=== PATIENT | male | born 1940 | race Caucasian/White ===

== ENCOUNTER 2021-10-16 21:12 | Observation (INO) ==
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
[2021-10-16] MEDS ORDERED: OXYMETAZOLINE 1 NASAL SPRAY BOTTLE NAS PRN (22:17)
[2021-10-16] MEDS ORDERED: ACETAMINOPHEN 500 MG TABLET PO ONE (22:17)
[2021-10-16] MEDS ORDERED: ONDANSETRON 4 MG ODT TABLET SL ONE (22:17)
[2021-10-16] MEDS ORDERED: 0.9 % SODIUM CHLORIDE 1,000 ML IV ONE (22:54)
[2021-10-16] MEDS ORDERED: ONDANSETRON 4 MG/2 ML VIAL IV ONE (22:54)
[2021-10-16] MEDS ORDERED: morphine 4 MG/ML VIAL IV PRN (22:54)
[2021-10-16 23:53] LABS: Basophils # (Auto) 0.07 K/mcL (0.00-0.30); Basophils % (Auto) 0.6 % (0.0-2.0); Eosinophils # (Auto) 0.18 K/mcL (0.00-0.70); Eosinophils % (Auto) 1.6 % (0.0-7.0); Hematocrit 36.7 % (40.1-51.0); Hemoglobin 11.6 g/dL (13.7-17.5); Mean Cell Volume 89.3 fL (80.0-100.0); Mean Corpuscular HGB Conc 31.6 g/dL (31.0-36.0); Mean Platelet Volume 10.6 fL (7.4-10.4); Monocytes # (Auto) 0.95 K/mcL (0.10-0.90); Monocytes % (Auto) 8.6 % (1.0-12.0); Neutrophils % (Auto) 80.2 % (38.0-78.0); Platelet Count 205 K/mcL (140-440); RBC 4.11 M/mcL (4.63-6.08); Red Cell Distribution Width 14.4 % (11.5-14.5); WBC 11.1 K/mcL (4.5-11.0)
[2021-10-17 00:11] LABS: INR 1.1 (0.9-1.1); Prothrombin Time 14.4 sec (11.9-14.5)
[2021-10-17 00:11] LABS: Alcohol, Blood < 10.0 mg/dL; Alcohol,Blood < 0.010 gm/dL (<0.010)
[2021-10-17 00:13] LABS: ALT/SGPT 11 U/L (<40); AST/SGOT 17 U/L (<40); Albumin 3.9 gm/dL (3.2-5.2); Albumin/Globulin Ratio 1.2 (1.0-2.3); Alkaline Phosphatase 125 U/L (39-117); Bilirubin,Total 0.3 mg/dL (0.1-1.0); Blood Urea Nitrogen 15 mg/dL (8-23); Calcium 9.3 mg/dL (8.6-10.4); Carbon Dioxide 23 mmol/L (22-30); Chloride 101 mmol/L (96-108); Globulin 3.2 gm/dL (2.2-3.7); Glomerular Filtration Rate 63; Glucose 126 mg/dL (70-105)
[2021-10-17] MEDS ORDERED: morphine 2 MG/ML VIAL IV PRN (00:42)
[2021-10-17] MEDS ORDERED: ONDANSETRON 4 MG/2 ML VIAL IV PRN (00:43)
[2021-10-17] MEDS ORDERED: NITROGLYCERIN 0.4 MG TAB.SUBL SL PRN (08:34)
[2021-10-17] MEDS ORDERED: METHOCARBAMOL 750 MG TABLET PO PRN (08:34)
[2021-10-17] MEDS ORDERED: HYDROcodone/APAP 5/325MG TABLET PO PRN (08:34)
[2021-10-17] MEDS ORDERED: NALOXONE HCL 0.4 MG/ML VIAL IV PRN (08:35)
[2021-10-17] MEDS ORDERED: HYDROmorphone 0.5 MG/0.5 ML SYRINGE IV PRN (08:36)
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
--- NOTE | 2021-10-17 08:49 | Internal Med History&Physical ---
HPI History of Present Illness Patient information: Note initiated : 10/17/21 at 8:36 am Service Date, if different from initiated Date: [] Patient: Angelo Caldwell 81 y/o M admitted on 10/17/21 for Trauma, fall. Chief Complaint: [] History of present illness: Mr. Caldwell is a 81 year male with a history of hypertension, hyperlipidemia, atrial fibrillation not on anticoagulation, prior DVT, history of GI bleed, coronary artery disease, prostate cancer who presented to the emergency department after a mechanical fall resulting in trauma to the left side of his face. Trauma work-up in the ED included cervical spine CT, face and head CT as well as knee x-ray. Radiology reported the results to the ED provider, ED, Dr. Ku, who then consulted with Dr. Almonte who is an viticulturist in [facility] followed by Dr. Van with maxillofacial surgery in [place]. The surgical consultants felt that the patient's trauma would not require urgent surgical intervention. Hospital medicine at [facility] was subsequently consulted for admission due to the patient's pain requiring IV opioids for pain control. Review of systems Constitutional: no fever, fatigue, or weight loss Eyes: no vision changes or pain Cardiovascular: no chest pain, no palpitations Respiratory: no cough or dyspnea Gastrointestinal: no abdominal pain, no nausea, vomiting, or diarrhea Genitourinary: no dysuria or difficulty voiding Musculoskeletal: Left sided facial pain due to trauma. Integumentary: no skin lesion or wound Neurological: no focal weakness or numbness Psychiatric: no anxiety or depression Physical exam Head: Left periorbital and left temporal hematoma, Eyes: PERRLA, left orbit conjunctival hemorrhage. Neck: full ROM Respiratory: no respiratory distress. Cardiovascular: normal rate and rhythm, S1, S2. GI/Abdominal: soft, nontender, no guarding. Extremities: full range of motion, nontender. Neurological: CN II-XII intact, intact motor, intact sensation. Psychiatric: normal mood. Skin: warm, normal color PFSH PFSH All Active Problems (Updated 10/17/21 @ 01:03 by Mark Nelson DO) Closed fracture of left zygomaticomaxillary complex (Acute) Closed head injury (Acute) Strain of left knee (Acute) Retrobulbar hematoma (Acute) Facial laceration (Acute) Concussion syndrome (Acute) New onset atrial fibrillation (Acute) Rising PSA following treatment for malignant neoplasm of prostate (Chronic) Recurrent prostate cancer (Chronic) Urge incontinence (Chronic) Constipation (Chronic) COLTON (stress urinary incontinence), male (Chronic) Erectile dysfunction (Chronic) Prostate cancer (Chronic) Change in vision (Chronic) Concussion without loss of consciousness (Chronic) Acute vestibular neuronitis (Chronic) Frontal headache (Chronic) Dizziness (Chronic) Dental infection (Chronic) External otitis of right ear (Chronic) CAD (coronary artery disease) (Chronic) Gastroduodenal artery bleed (Chronic) Anemia (Chronic) YOSSI (acute kidney injury) (Chronic) Tachycardia (Chronic) DVT, bilateral lower limbs (Chronic) Fracture of ankle, closed (Chronic) Benign localized prostatic hyperplasia without lower urinary tract symptoms (L UTS) (Chronic) Closed cervical spine fracture (Chronic) History of colonic polyps (Chronic) Elevated PSA (Chronic 12/11/13) Erectile dysfunction (Chronic 06/09/14) Fracture of finger, closed (Chronic) Gastric ulcer (Chronic) Gastrointestinal bleeding (Chronic) Hypertension, essential (Chronic) 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) Malignant neoplasm of prostate (Chronic 12/24/13) Closed rib fracture (Chronic) Melanoma of skin (Chronic) Urinary incontinence (Chronic 06/09/14) History of skin cancer (Chronic) Fecal impaction of colon (Chronic) Hip pain, acute (Chronic) Hematoma and contusion (Chronic) Medicare annual wellness visit, initial (Chronic) Hypertension (Chronic) Annual physical exam (Chronic) Right knee pain (Chronic) Dysphagia (Chronic) Medical History (Updated 10/17/21 @ 01:03 by Mark Nelson DO) Acute vestibular neuronitis YOSSI (acute kidney injury) Anemia Annual physical exam Benign localized prostatic hyperplasia without lower urinary tract symptoms (LUTS) CAD (coronary artery disease) Change in vision Closed cervical spine fracture x2 Closed rib fracture Concussion without loss of consciousness Constipation Dental infection Dizziness DVT, bilateral lower limbs Dysphagia Elevated PSA (12/11/13) Rising PSA status post radical prostatectomy with progression Erectile dysfunction (06/09/14) Erectile dysfunction External otitis of right ear Fecal impaction of colon Fracture of ankle, closed R Fracture of finger, closed R thumb Frontal headache Gastric ulcer Gastroduodenal artery bleed Gastrointestinal bleeding Hematoma and contusion hip/buttocks R>L Hip pain, acute History of colonic polyps History of skin cancer melanotic skin lesions Hypertension Hypertension, essential Malignant neoplasm of prostate (12/24/13) Medicare annual wellness visit, initial Melanoma of skin Osteoarthritis of left shoulder region L Postpolio syndrome Prostate cancer Recurrent prostate cancer Right knee pain Rising PSA following treatment for malignant neoplasm of prostate COLTON (stress urinary incontinence), male Tachycardia Urge incontinence Urinary incontinence (06/09/14) Surgical History (Updated 09/15/21 @ 08:25 by Nava Estrada) History of adenoidectomy History of angiography (08/26/21) Aortogram- celiac, gastroduodenal, superior pancreaticoduodenal, superior mesenteric History of hemorrhoidectomy History of hydrocelectomy R repair History of radical prostatectomy History of repair of right rotator cuff History of thumb surgery R History of tonsillectomy History of total knee replacement L Family History Father Congestive heart failure Malignant neoplasm at 83y Unknown Diabetes mellitus Mother Essential hypertension Osteoarthritis Cerebrovascular accident at 87y Social History marital status: education level: college occupational status: employed occupation: [employer] other: 4 Children, 2 grandchildren alcohol intake frequency: holiday/special occasion only substance use type: does not use MEDS/ALLERGIES Home Medications and Allergies Home Medications Medication Instructions Recorded Confirmed Type ipratropium bromide 42 mcg (0.06 2 spray INTRANASAL TID PRN #15 ml 06/10/20 10/06/21 Rx %) nasal spray methocarbamol 750 mg tablet 1 tab PO Q6H PRN 08/26/21 10/06/21 History nitroglycerin 0.4 mg sublingual 0.4 mg SUBLINGUAL Q5-15MIN PRN 0 08/26/21 10/06/21 Rx tablet (Nitrostat) Days #25 tab hydrocodone 10 mg-acetaminophen 1 tab PO Q6H PRN 09/07/21 10/17/21 History 325 mg tablet omeprazole 20 mg capsule,delayed 20 mg PO BID 09/07/21 10/06/21 History release atorvastatin 40 mg tablet (Lipitor) 40 mg PO QHS tab 10/06/21 10/17/21 History metoprolol succinate 50 mg 50 mg PO QDAY #90 tab 10/12/21 10/17/21 Rx tablet,extended release 24 hr olmesartan 40 mg tablet 40 mg PO QDAY 10/17/21 10/17/21 History Allergies Allergy/AdvReac Type Severity Reaction Status Date / Time No Known Drug Allergies Allergy Verified 10/16/21 21:15 EXAM Constitutional Vitals: Temp Pulse Resp BP Pulse Ox 98.8 F 85 20 157/75 96 10/17/21 07:55 10/17/21 07:55 10/17/21 07:55 10/17/21 07:55 10/17/21 07:55 DATA Data Completed and Pending Labs: Labs from last 24 hours 10/16/21 10/16/21 10/16/21 23:18 23:17 23:17 WBC RBC Hgb Hct MCV MCH MCHC RDW Plt Count MPV Neut % (Auto) Lymph % (Auto) [place] % (Auto) Eos % (Auto) Baso % (Auto) Lymph # (Auto) [place] # (Auto) Eos # (Auto) Baso # (Auto) Absolute Neutrophils PT 14.4 INR 1.1 Sodium 133 Potassium 4.1 Chloride 101 Carbon Dioxide 23 Anion Gap 9.0 BUN 15 Creatinine 1.1 GFR Calculation 63 Glucose 126 H Calcium 9.3 Total Bilirubin 0.3 AST 17 ALT 11 Alkaline Phosphatase 125 H Total Protein 7.1 Albumin 3.9 Globulin 3.2 Albumin/Globulin Ratio 1.2 Ethyl Alcohol < 0.010 10/16/21 23:17 WBC 11.1 H RBC 4.11 L Hgb 11.6 L Hct 36.7 L MCV 89.3 MCH 28.2 MCHC 31.6 RDW 14.4 Plt Count 205 MPV 10.6 H Neut % (Auto) 80.2 H Lymph % (Auto) 9.0 L [place] % (Auto) 8.6 Eos % (Auto) 1.6 Baso % (Auto) 0.6 Lymph # (Auto) 1.00 L [place] # (Auto) 0.95 H Eos # (Auto) 0.18 Baso # (Auto) 0.07 Absolute Neutrophils 8.87 H PT INR Sodium Potassium Chloride Carbon Dioxide Anion Gap BUN Creatinine GFR Calculation Glucose Calcium Total Bilirubin AST ALT Alkaline Phosphatase Total Protein Albumin Globulin Albumin/Globulin Ratio Ethyl Alcohol A/P Narrative A/P Narrative: Assessment: 81 year male with a history of hypertension, hyperlipidemia, atrial fibrillation not on anticoagulation, prior DVT, history of GI bleed, coronary artery disease, prostate cancer admitted after a mechanical fall resulting in left facial trauma and left orbital trauma. Ophthalmology and maxillofacial surgery in [facility] were consulted by the ED provider, no surgical intervention required per the consultants recommendation. I discussed the patient with ENT, Dr. Vo who recommended close follow-up with ENT in clinic in approximately 3 to 4 days for further evaluation. #Left orbital trauma #Left facial trauma #Hypertension #Hyperlipidemia #Atrial fibrillation not on anticoagulation #Coronary artery disease #History of DVT #History of GI bleed #History of prostate cancer Plan -Admit to observation status. -Analgesics as needed. -Cephalexin BID per maxillofacial surgery's recommendations.. -Follow-up pending CT scan reports. -Continue home atorvastatin, Toprol, telmisartan, omeprazole, nitro as needed. -Cardiac diet. -PT consult. -CODE STATUS: Full -Disposition: Home when pain adequately controlled on oral medications. Close follow-up with ENT after discharge. Time Spent With Patient Time: Total time spent is greater than 50% in coordination of care (as documented) at patient's floor/unit and/or counseling patient: QUALITY Stroke Symptom Onset Unknown: No VTE Deep Vein Thrombosis/Pulmonary Embolism Present on Admission: No
--- NOTE | 2021-10-17 08:52 | Cat Scan Report ---
History: Trauma with left-sided facial injury TECHNIQUE: The face was imaged without contrast in an axial plane at 1.25 mm intervals. Sagittal and coronal reformats were created. The radiation exposure was limited using dose reduction technology. FINDINGS: Patient has a left-sided tripod fracture. The zygomatic arch is comminuted with two fracture lines. There is minimal medial depression of the arch. There are also fractures along the anterior and lateral collins of the left maxillary sinus. There is another nondisplaced fracture involving the floor of the left orbit and there is a crack through the lateral wall of the left orbit. Associated with this is a moderate amount of blood in the left maxillary sinus. There is some extravasation of gas into the soft tissues lateral to the maxilla and in the posterior roof of the left orbit. Mild exophthalmos is present on the left side. The orbital globes are intact. There is no intraorbital hemorrhage. The optic nerves and extraocular muscles appear normal symmetric. There is a moderate size air-fluid level in the left-side sphenoid sinus. The surrounding bones are intact. Nodular mucosal thickening is seen in both frontal sinuses and along the collins of several ethmoid air cells due to underlying sinusitis. IMPRESSION: Nondisplaced left-side tripod fracture Interpreted and Authenticated by: Connor Dowd 10/17/21
[2021-10-17] MEDS: ACETAMINOPHEN 325 MG TABLET PO PRN (08:54)
[2021-10-17] MEDS: OMEPRAZOLE 20 MG CAPSULE PO SCH ×2 (08:55→20:39)
[2021-10-17] MEDS: CEPHALEXIN 250 MG CAPSULE PO SCH ×2 (08:55→20:39)
--- NOTE | 2021-10-17 08:55 | Cat Scan Report ---
History: Trauma with left-sided head injury TECHNIQUE: The brain was imaged without contrast in axial plane at 2.5 mm intervals. Sagittal and coronal reformats were created. The radiation exposure was limited using dose reduction technology. FINDINGS: There is extensive white matter disease with large ill-defined zones of decreased attenuation in the centrum semiovale throughout the frontal and parietal lobes with milder involvement in the posterior temporal and occipital lobes. No cortical lesion is present. There is no evidence of an infarct, intracranial hemorrhage or cerebral edema. No abnormal extra-axial fluid collection is present. The ventricles are mildly enlarged. The bone windows show no skull fracture. Comparison with the prior brain MRI done on 01/29/07 shows there has been significant progression of the diffuse white matter disease. Left-sided tripod fracture is noted. This is described in full detail on the facial CT report. IMPRESSION: No evidence of acute brain injury Severe diffuse white matter disease above the tentorium consistent with age-related ischemia or degeneration. Interpreted and Authenticated by: Connor Dowd 10/17/21
[2021-10-17] MEDS ORDERED: OLMESARTAN MEDOXOMIL 20 MG TABLET PO SCH (09:00)
[2021-10-17] MEDS ORDERED: METOPROLOL SUCCINATE 50 MG TAB.XL.24H PO SCH (09:00)
--- NOTE | 2021-10-17 09:00 | XRay Report ---
HISTORY: Fell, right knee injury FINDINGS: Patient has a well positioned total knee prosthesis. There is no fracture or reabsorption of bone around the hardware. There is a cluster of multiple well corticated heterotopic calcifications adjacent to the medial tibial plateau. No donor site is seen. These were seen preoperatively on 05/13/20 and may be due to chronic inflammation or prior injury. There is mild soft tissue swelling anterior to the knee. No joint effusion is detected. Scattered plaques are present in the arteries on both sides of the knee. IMPRESSION: No fracture Interpreted and Authenticated by: Connor Dowd 10/17/21
[2021-10-17] MEDS: HYDROcodone/APAP 10/325MG TABLET PO PRN ×2 (16:54→22:53)
[2021-10-17] MEDS ORDERED: ATORVASTATIN 40 MG TABLET PO SCH (21:00)
[2021-10-18] MEDS: ACETAMINOPHEN 325 MG TABLET PO PRN (01:34)
[2021-10-18] MEDS ORDERED: ACETAMINOPHEN 325 MG TABLET PO ONE (01:40)
[2021-10-18] MEDS ORDERED: METHOCARBAMOL 750 MG TABLET PO ONE (01:40)
[2021-10-18] MEDS: 0.9 % SODIUM CHLORIDE 10 ML SYRINGE IV SCH ×2 (02:05→05:10)
[2021-10-18] MEDS: HYDROcodone/APAP 10/325MG TABLET PO PRN (05:11)
[2021-10-18] MEDS ORDERED: HYDROcodone/APAP 10/325MG TABLET PO ONE (05:17)
[2021-10-18] MEDS ORDERED: HYDROmorphone 0.5 MG/0.5 ML SYRINGE IV PRN (05:53)
[2021-10-18] MEDS ORDERED: NALOXONE HCL 0.4 MG/ML VIAL IV PRN (05:53)
[2021-10-18] MEDS ORDERED: NITROGLYCERIN 0.4 MG TAB.SUBL SL PRN (05:54)
[2021-10-18] MEDS ORDERED: ACETAMINOPHEN 325 MG TABLET PO PRN (05:55)
[2021-10-18] MEDS ORDERED: METHOCARBAMOL 750 MG TABLET PO PRN (05:55)
[2021-10-18] MEDS ORDERED: ONDANSETRON 4 MG/2 ML VIAL IV PRN (05:56)
[2021-10-18] MEDS ORDERED: HYDROcodone/APAP 10/325MG TABLET PO PRN (05:57)
[2021-10-18] MEDS ORDERED: OXYMETAZOLINE 1 NASAL SPRAY BOTTLE NAS PRN (06:02)
[2021-10-18] MEDS ORDERED: OMEPRAZOLE 20 MG CAPSULE PO SCH (07:30)
[2021-10-18] MEDS ORDERED: OLMESARTAN MEDOXOMIL 20 MG TABLET PO SCH (09:00)
[2021-10-18] MEDS ORDERED: METOPROLOL SUCCINATE 50 MG TAB.XL.24H PO SCH (09:00)
[2021-10-18] MEDS ORDERED: CEPHALEXIN 500 MG CAPSULE PO SCH (09:00)
--- NOTE | 2021-10-18 10:03 | Discharge Summary ---
Discharge Provider Provider Patient information: Note initiated : 10/18/21 at 10:02 am Service Date, if different from initiated Date: [] Patient: Angelo Caldwell 81 y/o M admitted on 10/17/21 for Trauma, fall. Chief Complaint: [] Date of admission: 10/17/21 01:28 Discharge date: 10/18/21 Primary care physician: Parminder Lin MD Consults: 10/17/21 Consult to Physician [CONS] Stat Comment: Consulting Provider: Philip Haddad Reason For Exam: Physician to Consult Attending physician on discharge: Jasmit Ailin Discharge Meds Discharge Medications Home Medications ipratropium bromide 42 mcg (0.06 %) nasal spray 2 spray INTRANASAL TID PRN #15 ml 06/10/20 [Rx Confirmed 10/17/21 Last Taken Unknown] nitroglycerin 0.4 mg sublingual tablet (Nitrostat) 0.4 mg SUBLINGUAL Q5-15MIN PRN 0 Days #25 tab 08/26/21 [Rx Confirmed 10/17/21 Last Taken Unknown] hydrocodone 10 mg-acetaminophen 325 mg tablet 1 tab PO Q6H PRN 09/07/21 [History Confirmed 10/17/21 Last Taken Unknown] omeprazole 20 mg capsule,delayed release 20 mg PO BID 09/07/21 [History Confirmed 10/17/21 Last Taken 10/16/21 08:00] atorvastatin 40 mg tablet (Lipitor) 40 mg PO QHS tab 10/06/21 [History Confirmed 10/17/21 Last Taken 10/16/21] metoprolol succinate 50 mg tablet,extended release 24 hr 50 mg PO QDAY #90 tab 10/12/21 [Rx Confirmed 10/17/21 Last Taken 10/16/21] olmesartan 40 mg tablet 40 mg PO QDAY 10/17/21 [History Confirmed 10/17/21 Last Taken 10/15/21] cephalexin 500 mg capsule 500 mg PO BID 10 Days #20 cap 10/18/21 [Rx Last Taken Unknown] COURSE Hospital Course Hospital course: Mr. Caldwell is a 81 year male with a history of hypertension, hyperlipidemia, atrial fibrillation not on anticoagulation, prior DVT, history of GI bleed, coronary artery disease, prostate cancer who presented to the emergency department after a mechanical fall resulting in trauma to the left side of his face. Trauma work-up in the ED included cervical spine CT, face and head CT as well as knee x-ray. Radiology reported the results to the ED provider, ED, Dr. Ku, who then consulted with Dr. Almonte who is an child care counselor in [facility] followed by Dr. Van with maxillofacial surgery in [place]. The surgical consultants felt that the patient's trauma would not require urgent surgical intervention. Hospital medicine at [facility] was subsequently consulted for admission due to the patient's pain requiring IV opioids for pain control. 10/18: I took over the care of this patient yesterday afternoon at which point he was doing quite well. He was weaned off IV narcotic analgesics and has done well with ice packs and oral narcotic analgesics. I discussed the case with physical therapy today who thought that he did quite well and was optimized to go home with home health. The patient will need to follow-up with maxillofacial surgery. He will continue prophylactic Keflex until this time. Discharge diagnosis: Zygomatic fracture, left periorbital region Reason for admission: Multiple falls, head trauma Time Spent with Patient Time attestation: Total time spent providing and/or coordinating discharge services: Time spent: Greater than 30 minutes EXAM Constitutional Vitals: Temp Pulse Resp BP Pulse Ox 97.8 F 64 18 154/83 95 10/18/21 07:09 10/18/21 07:09 10/18/21 07:09 10/18/21 07:09 10/18/21 07:09 General appearance: average body habitus Head Head exam: Present normal inspection and normocephalic Additional comments: Left periorbital ecchymosis, conjunctival swelling Eye Eye exam: Present conjunctival injection, EOMI, normal appearance, periorbital swelling and PERRL ENT ENT exam: Present normal exam; Absent mucous membranes dry Neck Neck exam: Present full ROM; Absent lymphadenopathy Respiratory Respiratory exam: Present normal respiratory exam and CTAB; Absent decreased breath sounds, respiratory distress or wheezes Cardiovascular Cardiovascular exam: Present normal rate and rhythm and RRR; Absent JVD GI/Abdominal GI/Abdominal exam: Present normal bowel sounds and soft; Absent diminished bowel sounds, distended, guarding, mass, rebound or tenderness Neurological Exam Neurological exam: Present alert, CN II-XII intact and oriented X3 Psychiatric Psychiatric exam: Present normal affect and normal mood Skin Skin exam: Present intact and warm; Absent erythema, pallor, petechiae or rash Discharge Plan Patient/Caregiver Discharge Instructions Activity: as per physical therapy Diet: Regular Diet Activity Restrictions/Additional Instructions: Follow-up in [address] Oral Van Maxiofacial specialist [phone] GARTH In[place] Prescriptions: New cephalexin 500 mg Capsule 500 mg PO BID 10 Days Qty: 20 0RF Continued ipratropium bromide 42 mcg (0.06 %) spray,non-aerosol 2 spray INTRANASAL TID PRN (Reason: allergy symptoms) Qty: 15 1RF Rx Instructions: administer into each nostril; wait 30 seconds between sprays nitroglycerin [Nitrostat] 0.4 mg tablet, sublingual 0.4 mg SUBLINGUAL Q5-15MIN PRN (Reason: chest discomfot) 0 Days Qty: 25 0RF Rx Instructions: until response; do not exceed 3 doses per event omeprazole 20 mg capsule,delayed release(DR/EC) 20 mg PO BID 0RF hydrocodone-acetaminophen 10-325 mg tablet 1 tab PO Q6H PRN (Reason: Pain) 0RF metoprolol succinate 50 mg tablet extended release 24 hr 50 mg PO QDAY Qty: 90 0RF atorvastatin [Lipitor] 40 mg tablet 40 mg PO QHS 0RF olmesartan 40 mg Tablet 40 mg PO QDAY 0RF Discontinued methocarbamol 750 mg tablet 1 tab PO Q6H PRN (Reason: muscle spasm) 0RF Follow Up Plan Follow up with: Parminder Lin MD [Primary Care Provider] - Patient Disposition: Home Health Service Prognosis: Good Discharge Orders: Discharge Order (Routine); Ordered 10/18/21 Ordered By: Vincent JAQUEZ VTE Deep Vein Thrombosis/Pulmonary Embolism Present on Admission: No
[2021-10-18] MEDS ORDERED: 0.9 % SODIUM CHLORIDE 10 ML SYRINGE IV SCH (14:00)
[2021-10-18] MEDS ORDERED: ATORVASTATIN 40 MG TABLET PO SCH (21:00)
== END 2021-10-18 12:55 | disposition home health service (06) ==
LOC: ED 21:12 → MEDSUR 21:12 → UNDODISOB 10-17 22:41
PROVIDERS: ADMIT Internal Medicine; ATTEND Student in an Organized Health Care Education/Training Program

== ENCOUNTER 2024-04-14 19:09 | Inpatient (IN) ==
[2024-04-14] MEDS ORDERED: IOPAMIDOL 100 ML BOTTLE IV ONE (19:10)
[2024-04-14 19:55] LABS: Basophils # (Auto) 0.03 K/mcL (0.00-0.30); Basophils % (Auto) 0.6 % (0.0-2.0); Eosinophils # (Auto) 0.29 K/mcL (0.00-0.70); Eosinophils % (Auto) 5.5 % (0.0-7.0); Hematocrit 31.5 % (40.1-51.0); Hemoglobin 10.3 g/dL (13.7-17.5); Lymphocytes # (Auto) 0.25 K/mcL (1.50-4.80); Lymphocytes % (Auto) 4.7 % (15.5-49.0); Mean Cell Volume 93.8 fL (80.0-100.0); Mean Corpuscular HGB Conc 32.7 g/dL (31.0-36.0); Mean Platelet Volume 9.5 fL (8.8-12.5); Monocytes # (Auto) 0.78 K/mcL (0.10-0.90); Monocytes % (Auto) 14.7 % (1.0-12.0); Neutrophils % (Auto) 74.3 % (38.0-78.0); Platelet Count 250 K/mcL (140-440); RBC 3.36 M/mcL (4.63-6.08); Red Cell Distribution Width 12.4 % (11.5-14.5); WBC 5.3 K/mcL (4.5-11.0)
[2024-04-14 20:17] LABS: Blood Urea Nitrogen 24 mg/dL (8-23); Calcium 9.8 mg/dL (8.6-10.4); Carbon Dioxide 24 mmol/L (22-30); Chloride 98 mmol/L (96-108); Glomerular Filtration Rate 55; Glucose 103 mg/dL (70-105); Potassium 4.1 mmol/L (3.3-5.1); Sodium 135 mmol/L (133-145)
[2024-04-14 22:41] LABS: Appearance,Urine Clear (Clear); Bacteria,Urine 0 /hpf (0); Bilirubin,Urine Negative (Negative); Color,Urine Yellow; Glucose,Urine (UA) Negative (Negative); Ketones,Urine Negative (Negative); Leukocyte Esterase,Urine Negative /uL (Negative); Mucus,Urine Mod /hpf; Nitrate,Urine Negative (Negative); PH,Urine 5.5 (5.0-9.0); Protein,Urine Trace mg/dL (Negative); Specific Gravity,Urine 1.015 (1.000-1.035); Urine Blood Negative ery/mcL (Negative); Urine RBC 1 /hpf (0-3); Urine Squamous Epithelial Cell 0 /hpf (0-4); Urine WBC 4 /hpf (0-4); Urobilinogen,Urine Normal
[2024-04-14] MEDS ORDERED: POTASSIUM CHLORIDE 40 MEQ in DEXTROSE 5% IN WATER 500 ML IV PRN (22:48)
[2024-04-14] MEDS ORDERED: METOPROLOL TARTRATE 5 MG/5 ML VIAL IV PRN (22:48)
[2024-04-14] MEDS ORDERED: ONDANSETRON 4 MG/2 ML VIAL IV PRN (22:48)
[2024-04-14] MEDS ORDERED: POLYETHYLENE GLYCOL 3350 17 GM PACKET PO PRN (22:48)
[2024-04-14] MEDS ORDERED: IPRATROPIUM/ALBUTEROL 3 ML AMPUL.NEB NEB PRN (22:48)
[2024-04-14] MEDS ORDERED: ACETAMINOPHEN 325 MG TABLET PO PRN (22:48)
[2024-04-14] MEDS ORDERED: POTASSIUM CHLORIDE 20 MEQ TABLET PO PRN ×2 (22:48)
[2024-04-14] MEDS ORDERED: MAGNESIUM SULFATE 2 GM/50 ML BAG IV PRN (22:48)
[2024-04-14] MEDS ORDERED: SENNOSIDES 1 TABLET PO PRN (22:48)
[2024-04-14] MEDS ORDERED: METOCLOPRAMIDE 10 MG/2 ML VIAL IV PRN (22:48)
[2024-04-14] MEDS: cefTRIAXone 1 GM VIAL IV SCH (23:44)
[2024-04-14] MEDS: 0.9 % SODIUM CHLORIDE 10 ML SYRINGE IV SCH (23:44)
[2024-04-14] MEDS: 0.9 % SODIUM CHLORIDE 1,000 ML IV ONE (23:45)
[2024-04-14] MEDS: cefTRIAXone 1 GM VIAL ONE (23:46)
[2024-04-14] MEDS: AZITHROMYCIN 500 MG in DEXTROSE 5% IN WATER 250 ML IV SCH (23:46)
[2024-04-15 06:07] LABS: Basophils # (Auto) 0.02 K/mcL (0.00-0.30); Basophils % (Auto) 0.3 % (0.0-2.0); Eosinophils # (Auto) 0.42 K/mcL (0.00-0.70); Eosinophils % (Auto) 7.1 % (0.0-7.0); Hematocrit 29.5 % (40.1-51.0); Hemoglobin 9.5 g/dL (13.7-17.5); Lymphocytes # (Auto) 0.34 K/mcL (1.50-4.80); Lymphocytes % (Auto) 5.8 % (15.5-49.0); Mean Cell Volume 93.9 fL (80.0-100.0); Mean Corpuscular HGB Conc 32.2 g/dL (31.0-36.0); Mean Platelet Volume 9.4 fL (8.8-12.5); Monocytes # (Auto) 1.02 K/mcL (0.10-0.90); Monocytes % (Auto) 17.3 % (1.0-12.0); Neutrophils % (Auto) 69.3 % (38.0-78.0); Platelet Count 217 K/mcL (140-440); RBC 3.14 M/mcL (4.63-6.08); Red Cell Distribution Width 12.4 % (11.5-14.5); WBC 5.9 K/mcL (4.5-11.0)
[2024-04-15 06:40] LABS: ALT/SGPT 8 U/L (<40); AST/SGOT 20 U/L (<40); Albumin 3.1 gm/dL (3.2-5.2); Albumin/Globulin Ratio 1.1 (1.0-2.3); Alkaline Phosphatase 78 U/L (39-117); Bilirubin,Direct < 0.2 mg/dL (0-0.3); Bilirubin,Total 0.3 mg/dL (0.1-1.0); Blood Urea Nitrogen 20 mg/dL (8-23); Calcium 8.9 mg/dL (8.6-10.4); Carbon Dioxide 22 mmol/L (22-30); Chloride 101 mmol/L (96-108); Globulin 2.9 gm/dL (2.2-3.7); Glomerular Filtration Rate 78; Glucose 95 mg/dL (70-105); Lactate Dehydrogenase 221 U/L (135-225); Phosphorous 2.9 mg/dL (2.5-4.5); Potassium 4.1 mmol/L (3.3-5.1); Sodium 134 mmol/L (133-145); Triglycerides 52 mg/dL (<150); Uric Acid 4.1 mg/dL (2.5-8.0)
[2024-04-15] MEDS ORDERED: NITROGLYCERIN 0.4 MG TAB.SUBL SL PRN (08:29)
[2024-04-15] MEDS ORDERED: APIXABAN 2.5 MG TABLET PO SCH (09:00)
[2024-04-15] MEDS ORDERED: OMEPRAZOLE 20 MG CAPSULE PO SCH (09:00)
[2024-04-15] MEDS ORDERED: ENOXAPARIN 40 MG/0.4 ML SYRINGE SQ SCH (09:00)
[2024-04-15] MEDS ORDERED: METOPROLOL SUCCINATE 50 MG TAB.XL.24H PO SCH (09:00)
[2024-04-15] MEDS: METOPROLOL SUCCINATE 50 MG TAB.XL.24H PO SCH (09:41)
[2024-04-15] MEDS: DOCUSATE SODIUM 100 MG CAPSULE PO SCH (09:41)
[2024-04-15] MEDS: APIXABAN 2.5 MG TABLET PO SCH (09:41)
[2024-04-15] MEDS: OMEPRAZOLE 20 MG CAPSULE PO SCH (09:41)
[2024-04-15] MEDS: ATORVASTATIN 40 MG TABLET PO SCH (20:46)
[2024-04-15] MEDS: LOSARTAN 25 MG TABLET PO SCH (20:46)
[2024-04-15] MEDS: MIRTAZAPINE 15 MG TABLET PO SCH (20:47)
[2024-04-15] MEDS ORDERED: ATORVASTATIN 40 MG TABLET PO SCH (21:00)
[2024-04-15] MEDS ORDERED: LOSARTAN 25 MG TABLET PO SCH (21:00)
[2024-04-17 12:39] VITALS: TEMP 97.8; O2SAT 97
== END 2024-04-17 14:15 | DRG 177 ==
LOC: ED 19:09 → MEDSUR 22:39
PROVIDERS: ADMIT Internal Medicine; ATTEND Internal Medicine